=== PATIENT | male | born 1955 | race American Indian/Alaskan Native ===

== ENCOUNTER 2019-03-04 00:09 | Emergency (ER) | payer MEDICARE ==
[2019-03-04 02:11] LABS: Basophils # (Auto) 0.1 K/mm3 (0.0-0.1); Basophils % (Auto) 1.1 % (0.0-1.8); Eosinophils # (Auto) 0.2 K/mm3 (0.0-0.4); Eosinophils % (Auto) 1.4 % (0.0-4.3); Hematocrit 44.7 % (35.5-45.6); Hemoglobin 14.6 gm/dl (11.8-15.2); Lymphocytes # (Auto) 1.6 K/mm3 (1.2-5.4); Lymphocytes % (Auto) 12.8 % (13.4-35.0); Mean Corpuscular HGB Conc 33 % (32-34); Mean Corpuscular Volume 88 fl (84-94); Monocytes # (Auto) 1.3 K/mm3 (0.0-0.8); Monocytes % (Auto) 10.2 % (0.0-7.3); Platelet Count 256 K/mm3 (140-440); Red Cell Distribution Width 17.2 % (13.2-15.2)
[2019-03-04 02:33] LABS: Calcium 10.7 mg/dL (8.4-10.2)
--- NOTE | 2019-03-04 03:39 | Emergency Department Report ---
ED General Adult HPI - General Chief complaint: Altered Mental Status Stated complaint: AMS/MH EVAL Time Seen by Provider: 03/04/19 01:17 Source: EMS Mode of arrival: Stretcher Limitations: Physical Limitation - History of Present Illness Initial comments: Patient is a 63-year-old -[place] male with a past medical history of type 2 diabetes tension in stage renal disease who is exit coming from [facility] for "altered mental status". Patient admits to sometimes his medications make him feel funny. Patient is actually alert and oriented this at this time has no complaints. He states he has no chest pain shortness of breath fevers chills nausea vomiting. - Related Data Home Medications Medication Instructions Recorded Confirmed Last Taken Aspirin EC [Halfprin EC] 81 mg PO DAILY 09/25/15 09/25/15 09/24/15 81 mg AtorvaSTATin [Lipitor] 20 mg PO QHS 09/25/15 09/25/15 09/24/15 20 mg Docusate Sodium [Colace CAP] 100 mg PO DAILY 09/25/15 09/25/15 09/24/15 100 mg Hydrocortisone [Anucort-HC SUPPOS] 25 mg CA DAILY PRN 09/25/15 09/25/15 Unknown Nitroglycerin [Nitrostat] 0.4 mg SL PRN PRN 09/25/15 09/25/15 Unknown Ondansetron HCl [Ondansetron TAB] 4 mg PO Q8HR PRN 09/25/15 09/25/15 Unknown Sennosides [Senno] 8.6 mg PO DAILY 09/25/15 09/25/15 09/24/15 8.6mg oxyCODONE [roxiCODONE] 5 mg PO Q4-6H PRN 09/25/15 09/25/15 Unknown Allergies Allergy/AdvReac Type Severity Reaction Status Date / Time No Known Allergies Allergy Verified 09/25/15 09:40 ED Review of Systems ROS: Stated complaint: AMS/MH EVAL Other details as noted in HPI Comment: All other systems reviewed and negative ED Past Medical Hx - Past Medical History Previous Medical History?: Yes Hx Hypertension: Yes Hx Heart Attack/AMI: Yes Hx Congestive Heart Failure: No Hx Diabetes: Yes (type 2) Hx Renal Disease: Yes (ESRD) Hx Asthma: No Hx COPD: No Hx HIV: No Additional medical history: blind - Surgical History Past Surgical History?: Yes Additional Surgical History: vascath right chest,graft left forearm, back - Social History Smoking Status: Former Smoker Substance Use Type: None - Medications Home Medications: Home Medications Medication Instructions Recorded Confirmed Last Taken Type Aspirin EC [Halfprin EC] 81 mg PO DAILY 09/25/15 09/25/15 09/24/15 History 81 mg AtorvaSTATin [Lipitor] 20 mg PO QHS 09/25/15 09/25/15 09/24/15 History 20 mg Docusate Sodium [Colace CAP] 100 mg PO DAILY 09/25/15 09/25/15 09/24/15 History 100 mg Hydrocortisone [Anucort-HC SUPPOS] 25 mg CA DAILY PRN 09/25/15 09/25/15 Unknown History Nitroglycerin [Nitrostat] 0.4 mg SL PRN PRN 09/25/15 09/25/15 Unknown History Ondansetron HCl [Ondansetron TAB] 4 mg PO Q8HR PRN 09/25/15 09/25/15 Unknown History Sennosides [Senno] 8.6 mg PO DAILY 09/25/15 09/25/15 09/24/15 History 8.6mg oxyCODONE [roxiCODONE] 5 mg PO Q4-6H PRN 09/25/15 09/25/15 Unknown History ED Physical Exam - General Limitations: Physical Limitation General appearance: alert, in no apparent distress - Head Head exam: Present: atraumatic, normocephalic - Eye Eye exam: Present: normal appearance, PERRL, EOMI - ENT ENT exam: Present: mucous membranes moist - Neck Neck exam: Present: normal inspection - Respiratory Respiratory exam: Present: normal lung sounds bilaterally. Absent: respiratory distress, wheezes, rales, rhonchi - Cardiovascular Cardiovascular Exam: Present: regular rate, normal rhythm, normal heart sounds. Absent: systolic murmur, diastolic murmur, rubs, gallop - GI/Abdominal GI/Abdominal exam: Present: soft, normal bowel sounds. Absent: distended, tenderness, guarding, rebound - Rectal Rectal exam: Present: deferred - Extremities Exam Extremities exam: Present: normal inspection - Back Exam Back exam: Present: normal inspection - Neurological Exam Neurological exam: Present: alert, oriented X3 - Psychiatric Psychiatric exam: Present: normal affect, normal mood - Skin Skin exam: Present: warm, dry, intact, normal color. Absent: rash ED Course Vital Signs 03/04/19 00:35 Temperature 98.7 F Pulse Rate 91 H Respiratory 16 Rate Blood Pressure 133/82 O2 Sat by Pulse 94 Oximetry ED Medical Decision Making - Lab Data Result diagrams: 03/04/19 01:47 03/04/19 01:47 Labs 03/04/19 03/04/19 01:47 01:47 WBC 12.7 H RBC 5.10 H Hgb 14.6 Hct 44.7 MCV 88 MCH 29 MCHC 33 RDW 17.2 H Plt Count 256 Lymph % (Auto) 12.8 L Cataño % (Auto) 10.2 H Eos % (Auto) 1.4 Baso % (Auto) 1.1 Lymph # 1.6 Cataño # 1.3 H Eos # 0.2 Baso # 0.1 Seg Neutrophils % 74.5 H Seg Neutrophils # 9.5 H Sodium 141 Potassium 4.1 Chloride 93.9 L Carbon Dioxide 25 Anion Gap 26 BUN 43 H Creatinine 7.7 H Estimated GFR 9 BUN/Creatinine Ratio 6 Glucose 111 H Calcium 10.7 H - Medical Decision Making Patient's laboratory studies are within normal limits was patient. 2016 patient is BUN/creatinine was 80 and 9.1 respectively. Today's 43 and 7.7. Has normal potassium. Patient she is alert and oriented 3. Patient has no altered mental status and is medically cleared to go back to his snf. Critical care attestation.: If time is entered above; I have spent that time in minutes in the direct care of this critically ill patient, excluding procedure time. ED Disposition Clinical Impression: Chronic kidney disease, Episode of abnormal behavior Disposition: DC-01 TO HOME OR SELFCARE Is pt being admited?: No Does the pt Need Aspirin: No Condition: Stable Additional Instructions: Patient's laboratory studies are within normal limits he's been medically cleared. Time of Disposition: 03:45
[2019-03-04 04:30] VITALS: BP 141/91
== END 2019-03-04 06:58 | disposition home or self-care (01) ==
LOC: ED 00:09
DX: E13.22 Other specified diabetes mellitus with diabetic chronic kidney disease (principal); I12.0 Hypertensive chronic kidney disease with stage 5 chronic kidney disease or end stage renal disease; N18.6 End stage renal disease; I25.2 Old myocardial infarction; Z87.891 Personal history of nicotine dependence
CPT/HCPCS: 36415; 80048; 85025

== ENCOUNTER 2019-08-28 19:38 | Emergency (ER) | payer MEDICARE ==
--- NOTE | 2019-08-28 20:34 | Emergency Department Report ---
ED General Adult HPI - General Chief complaint: Altered Mental Status Stated complaint: ALTERED PUI?: No Time Seen by Provider: 08/28/19 20:22 Source: patient, EMS (Verbal report received from emergency medical services. EMS documentation not available at time of chart dictation ), RN notes reviewed, old records reviewed Mode of arrival: Stretcher Limitations: Altered Mental Status, Physical Limitation - History of Present Illness Initial comments: The patient is a 64-year-old gentleman. He is not known to myself previously. He is a functional bilateral lower extremity paraplegic patient, blind in both eyes, cataract surgery in his left eye, possibly on hemodialysis, with a left upper extremity fistula, has a known history of pancreatic mass and uremia. The patient is brought to the hospital by emergency medical services for weakness and altered mental status. As per verbal report from EMS, patient found at his [facility], at approximately 6:00 PM, with confusion and a reported left-sided facial droop. In the emergency room, this is resolved. The patient is awake, follows commands. He states his belly hurts when "you mash on it." He denies headache, neck pain, chest pain. The patient is somewhat of a poor historian. The patient follows commands. He is not accompanied by friends or family for additional information or collateral information at this time. He does not know who his primary care doctor or his link wire fabric machine tender is. EMS verbally indicates normal vital signs in the field, as well as normal Accu- Chek. At the moment, the patient has not been sent with his medication list. -: Sudden Consistency: now resolved Improves with: other (Patient cannot describe improving factors, exacerbating factors, or qualitative nature of his symptoms.) - Related Data Home Medications Medication Instructions Recorded Confirmed Last Taken Aspirin EC [Halfprin EC] 81 mg PO DAILY 09/25/15 09/25/15 09/24/15 81 mg AtorvaSTATin [Lipitor] 20 mg PO QHS 09/25/15 09/25/15 09/24/15 20 mg Docusate Sodium [Colace CAP] 100 mg PO DAILY 09/25/15 09/25/15 09/24/15 100 mg Hydrocortisone [Anucort-HC SUPPOS] 25 mg CA DAILY PRN 09/25/15 09/25/15 Unknown Nitroglycerin [Nitrostat] 0.4 mg SL PRN PRN 09/25/15 09/25/15 Unknown Sennosides [Senno] 8.6 mg PO DAILY 09/25/15 09/25/15 09/24/15 8.6mg ondansetron HCL [Ondansetron TAB] 4 mg PO Q8HR PRN 09/25/15 09/25/15 Unknown oxyCODONE [roxiCODONE] 5 mg PO Q4-6H PRN 09/25/15 09/25/15 Unknown Allergies Allergy/AdvReac Type Severity Reaction Status Date / Time No Known Allergies Allergy Verified 09/25/15 09:40 ED Review of Systems ROS: Stated complaint: ALTERED Other details as noted in HPI Comment: Unobtainable due to pts medical conditions Gastrointestinal: abdominal pain Neurological: confusion ED Past Medical Hx - Past Medical History Hx Hypertension: Yes Hx Heart Attack/AMI: Yes Hx Congestive Heart Failure: No Hx Diabetes: Yes (type 2) Hx Renal Disease: Yes (ESRD) Hx Asthma: No Hx COPD: No Hx HIV: No Additional medical history: blind - Surgical History Additional Surgical History: vascath right chest,graft left forearm, back - Social History Smoking Status: Former Smoker Substance Use Type: None - Medications Home Medications: Home Medications Medication Instructions Recorded Confirmed Last Taken Type Aspirin EC [Halfprin EC] 81 mg PO DAILY 09/25/15 09/25/15 09/24/15 History 81 mg AtorvaSTATin [Lipitor] 20 mg PO QHS 09/25/15 09/25/15 09/24/15 History 20 mg Docusate Sodium [Colace CAP] 100 mg PO DAILY 09/25/15 09/25/15 09/24/15 History 100 mg Hydrocortisone [Anucort-HC SUPPOS] 25 mg CA DAILY PRN 09/25/15 09/25/15 Unknown History Nitroglycerin [Nitrostat] 0.4 mg SL PRN PRN 09/25/15 09/25/15 Unknown History Sennosides [Senno] 8.6 mg PO DAILY 09/25/15 09/25/15 09/24/15 History 8.6mg ondansetron HCL [Ondansetron TAB] 4 mg PO Q8HR PRN 09/25/15 09/25/15 Unknown History oxyCODONE [roxiCODONE] 5 mg PO Q4-6H PRN 09/25/15 09/25/15 Unknown History ED Physical Exam - General Limitations: Altered Mental Status, Physical Limitation General appearance: in no apparent distress - Head Head exam: Present: atraumatic, normocephalic - Eye Eye exam: Present: normal appearance, other (Left eye is status post cataract surgery. The cornea is opacified. Crusting noted to the left eye. Right pupil is minimally reactive to light, both pupils are 3 to 4 mm.) - ENT ENT exam: Present: normal exam, mucous membranes moist, normal external ear exam, other (Patient is able to speak in complete sentences) - Neck Neck exam: Present: normal inspection, full ROM - Respiratory Respiratory exam: Present: decreased breath sounds. Absent: respiratory distress - Cardiovascular Cardiovascular Exam: Present: normal rhythm, bradycardia, normal heart sounds. Absent: tachycardia, irregular rhythm, systolic murmur, diastolic murmur, rubs, gallop - GI/Abdominal GI/Abdominal exam: Present: soft, other (There is a colostomy noted in the left lower quadrant). Absent: distended, tenderness, guarding, rebound, rigid, pulsatile mass - Rectal Rectal exam: Present: other (Skin maceration noted. Stage I wound. Chaperoned by nurse Connie Ang) - exam: Present: normal inspection (Chaperoned by nurse Connie Ang) - Extremities Exam Extremities exam: Present: other (There is swelling in the left upper extremity. 2+ pulses noted in the bilateral radial and femoral distributions. There is a left upper extremity fistula, without redness, pus or streaking. There is an appropriate thrill.). Absent: normal inspection (Chronic wound noted to the right distal lower extremity/lateral malleolus. No redness, pus or streaking. Chronic wound noted to the left lateral foot. No redness, pus or streaking.), tenderness (There is no long bony tenderness) - Back Exam Back exam: Present: normal inspection. Absent: tenderness - Neurological Exam Neurological exam: Present: other (The patient is awake. He is paraplegic in his bilateral lower extremities. He has 4 out of 5 strength in his bilateral upper extremities. Sensation is intact to light touch in the bilateral upper extremities. Hearing is grossly intact. Patient is phonating normally. The tongue is midline. Patient has difficulty completing a detailed neurologic examination secondary to debility and mental status.) - Psychiatric Psychiatric exam: Present: flat affect - Skin Skin exam: Present: warm ED Course Vital Signs 08/28/19 08/28/19 08/28/19 20:30 21:00 21:12 Temperature 96.0 F L Pulse Rate 57 L 56 L 54 L Respiratory 18 12 Rate Blood Pressure 122/68 Blood Pressure 122/68 [Right] O2 Sat by Pulse 99 94 92 Oximetry 08/28/19 08/28/19 08/28/19 22:00 23:00 23:04 Temperature Pulse Rate 51 L 51 L 49 L Respiratory 15 10 L Rate Blood Pressure 122/68 124/74 124/71 Blood Pressure [Right] O2 Sat by Pulse 99 100 100 Oximetry 08/29/19 08/29/19 00:00 01:00 Temperature Pulse Rate 52 L 49 L Respiratory Rate Blood Pressure 124/71 110/65 Blood Pressure [Right] O2 Sat by Pulse 100 100 Oximetry - Reevaluation(s) Reevaluation #1: 08/28/19 21:20 Differential diagnosis, including but not limited to: Transient ischemic attack, pneumonia, urinary tract infection, intracranial lesion, intra-abdominal infection, toxic encephalopathy, metabolic encephalopathy, electrolyte derangement, thyroid derangement Assessment and plan: 64-year-old gentleman who is bedbound and quadriplegic, moving bilateral upper extremities, no obvious facial droop on my exam, with no acute complaints at this time with the exception of abdominal pain with palpation, with a soft benign abdomen. Rectal temperature is 96 degrees. Patient will be started on passive rewarming. CT scan of the brain, CT scan of the abdomen pelvis, appropriate laboratory studies ordered, nursing team has been instructed to contact his [facility] and reconcile his medications. We will reassess after his data points have resulted Reevaluation #2: 08/28/19 21:52 called up [facility] residence, carp[facility] they were not able to tell me the name of the patients link wire fabric machine tender or provide additional collateral information regarding what transpired prior to the patient arriving to this er Reevaluation #3: 08/28/19 21:55 pmd : Dr Jack Quinn Reevaluation #4: 08/28/19 23:17 renal: Dr Gwendolyn Mulligan ct head and abd/pelvis negative for acute findings patient is anuric On reassessment, the patient is sleeping comfortably in his stretcher, in no acute distress, with no obvious facial droop. 08/28/19 23:21 Medication list reviewed and appreciated. Medications include Keppra, sevelamer carbonate vitamin d 3, sertraline, melatonin, baclofen, mvi, ketotifen fumarate 08/29/19 00:09 patient continues to rest comfortably, no facial droop, no acute distress at this time. Collateral information obtained from nursing team, as per verbal report from [facility] staff, patient has had events like this in the past. Apparently, it is happen with such frequency, that he is even had a psychiatric evaluation. The details of this examination and evaluation are not known at this time. 08/29/19 02:43 Final reevaluation. Patient has been observed in this department for 7 hours. We have not noticed or observed any facial droop. He will occasionally move his bilateral upper extremities. His vital signs appear to be unremarkable. ED Medical Decision Making - Lab Data Result diagrams: 08/28/19 20:52 08/28/19 20:52 Vital Signs 08/28/19 21:12 Temperature 96.0 F L Pulse Rate 54 L Respiratory 12 Rate Blood Pressure 122/68 [Right] O2 Sat by Pulse 92 Oximetry Lab Results 08/28/19 Range/Units 20:52 WBC 6.8 (4.5-11.0) K/mm3 RBC 4.54 (3.65-5.03) M/mm3 Hgb 12.5 (11.8-15.2) gm/dl Hct 38.7 (35.5-45.6) % MCV 85 (84-94) fl MCH 28 (28-32) pg MCHC 32 (32-34) % RDW 18.6 H (13.2-15.2) % Plt Count 184 (140-440) K/mm3 Lab Results 08/28/19 08/28/19 08/28/19 Range/Units 20:52 20:52 20:52 WBC 6.8 (4.5-11.0) K/mm3 RBC 4.54 (3.65-5.03) M/mm3 Hgb 12.5 (11.8-15.2) gm/dl Hct 38.7 (35.5-45.6) % MCV 85 (84-94) fl MCH 28 (28-32) pg MCHC 32 (32-34) % RDW 18.6 H (13.2-15.2) % Plt Count 184 (140-440) K/mm3 PT (12.2-14.9) Sec. INR (0.87-1.13) Sodium 142 (137-145) mmol/L Potassium 4.5 (3.6-5.0) mmol/L Chloride 93.8 L (98-107) mmol/L Carbon Dioxide 33 H (22-30) mmol/L Anion Gap 20 mmol/L BUN 52 H (9-20) mg/dL Creatinine 8.3 H (0.8-1.5) mg/dL Estimated GFR 8 ml/min BUN/Creatinine Ratio 6 % Glucose 115 H (75-100) mg/dL Calcium 10.8 H (8.4-10.2) mg/dL Magnesium 3.00 H (1.7-2.3) mg/dL Total Bilirubin 0.30 (0.1-1.2) mg/dL AST 16 (5-40) units/L ALT 18 (7-56) units/L Alkaline Phosphatase 87 (35-129) units/L Total Creatine Kinase 173 H (55-170) units/L Total Protein 7.8 (6.3-8.2) g/dL Albumin 3.4 L (3.9-5) g/dL Albumin/Globulin Ratio 0.8 % Lipase 39 (13-60) units/L TSH 1.430 (0.270-4.200) mlU/mL Salicylates (2.8-20.0) mg/dL Acetaminophen (10.0-30.0) ug/mL Plasma/Serum Alcohol (0-0.07) % 08/28/19 08/28/19 08/28/19 Range/Units 20:52 20:52 20:52 WBC (4.5-11.0) K/mm3 RBC (3.65-5.03) M/mm3 Hgb (11.8-15.2) gm/dl Hct (35.5-45.6) % MCV (84-94) fl MCH (28-32) pg MCHC (32-34) % RDW (13.2-15.2) % Plt Count (140-440) K/mm3 PT (12.2-14.9) Sec. INR (0.87-1.13) Sodium (137-145) mmol/L Potassium (3.6-5.0) mmol/L Chloride (98-107) mmol/L Carbon Dioxide (22-30) mmol/L Anion Gap mmol/L BUN (9-20) mg/dL Creatinine (0.8-1.5) mg/dL Estimated GFR ml/min BUN/Creatinine Ratio % Glucose (75-100) mg/dL Calcium (8.4-10.2) mg/dL Magnesium (1.7-2.3) mg/dL Total Bilirubin (0.1-1.2) mg/dL AST (5-40) units/L ALT (7-56) units/L Alkaline Phosphatase (35-129) units/L Total Creatine Kinase (55-170) units/L Total Protein (6.3-8.2) g/dL Albumin (3.9-5) g/dL Albumin/Globulin Ratio % Lipase (13-60) units/L TSH (0.270-4.200) mlU/mL Salicylates < 0.3 L (2.8-20.0) mg/dL Acetaminophen < 5.0 L (10.0-30.0) ug/mL Plasma/Serum Alcohol < 0.01 (0-0.07) % /02/04 Range/Units 20:52 WBC (4.5-11.0) K/mm3 RBC (3.65-5.03) M/mm3 Hgb (11.8-15.2) gm/dl Hct (35.5-45.6) % MCV (84-94) fl MCH (28-32) pg MCHC (32-34) % RDW (13.2-15.2) % Plt Count (140-440) K/mm3 PT 13.9 (12.2-14.9) Sec. INR 1.09 (0.87-1.13) Sodium (137-145) mmol/L Potassium (3.6-5.0) mmol/L Chloride (98-107) mmol/L Carbon Dioxide (22-30) mmol/L Anion Gap mmol/L BUN (9-20) mg/dL Creatinine (0.8-1.5) mg/dL Estimated GFR ml/min BUN/Creatinine Ratio % Glucose (75-100) mg/dL Calcium (8.4-10.2) mg/dL Magnesium (1.7-2.3) mg/dL Total Bilirubin (0.1-1.2) mg/dL AST (5-40) units/L ALT (7-56) units/L Alkaline Phosphatase (35-129) units/L Total Creatine Kinase (55-170) units/L Total Protein (6.3-8.2) g/dL Albumin (3.9-5) g/dL Albumin/Globulin Ratio % Lipase (13-60) units/L TSH (0.270-4.200) mlU/mL Salicylates (2.8-20.0) mg/dL Acetaminophen (10.0-30.0) ug/mL Plasma/Serum Alcohol (0-0.07) % - EKG Data 08/28/19 21:14 The EKG shows a sinus rhythm, bradycardia, 56 bpm, first-degree AV block, right bundle branch block, left axis deviation, left anterior fascicular block, low voltage, abnormal EKG, QTC prolonged, not a STEMI. When compared to prior EKG from June 2015, first-degree AV block, left axis deviation, right bundle branch block have been present since then. - Radiology Data Radiology results: report reviewed, image reviewed Print Report Referring Physician: ANKUSH MAYO Patient Name: QUIN BUNCH Date of : 1955 Sex: Male Report Date: 2019-08-28 Report Status: [place] [address] XRay Report Signed Patient: QUIN BUNCH MR#: [id number] 84 : 1955 Acct:[id number] Age/Sex: 64 / M ADM Date: 08/28/19 Loc: ED Attending Dr: Ordering Physician: ANKUSH MAYO MD Date of Service: 08/28/19 Procedure(s): XR chest 1V ap Accession Number(s): [id number] cc: ANKUSH MAYO MD Fluoro Time In Minutes: CHEST 1 VIEW 08/28/2019 8:30 PM INDICATION / CLINICAL INFORMATION: Altered mental status, weakness, history of stroke. COMPARISON: None available. FINDINGS: SUPPORT DEVICES: None. HEART / MEDIASTINUM: No significant abnormality. LUNGS / PLEURA: No significant pulmonary or pleural abnormality. No pneumothorax. ADDITIONAL FINDINGS: No significant additional findings. IMPRESSION: 1. No acute abnormality of the chest. Signer Name: Sujit Sutherland MD Signed: 08/28/2019 8:50 PM Workstation Name: [id number] Transcribed By: GERSON Dictated By: Sujit Sutherland MD Electronically Authenticated By: Sujit Sutherland MD Signed Date/Time: 08/28/192049 DD/ 48 TD/TT: Critical care attestation.: If time is entered above; I have spent that time in minutes in the direct care of this critically ill patient, excluding procedure time. ED Disposition Clinical Impression: ESRD (end stage renal disease) on dialysis, General medical exam Disposition: DC/TX-70 ANOTHER TYPE HLTHCARE Is pt being admited?: No Does the pt Need Aspirin: No Condition: Stable Additional Instructions: Continue outpatient medications with the exception of baclofen; recommend that p atient discontinue baclofen. Follow-up with your outpatient primary care doctor or link wire fabric machine tender within the next 2 to 3 days. Please have your primary care doctor or link wire fabric machine tender follow-up on the swelling for the patient's left upper extremity. Recommend that this is followed up within the recommended timeframe. Please return to the emergency room right away with new pain, worsening pain, migration of pain, projectile vomiting, change in mental status, confusion, inability to tolerate liquid feeds, new, worsened or different symptoms not present on the initial emergency room evaluation. Referrals: SARA QUINN MD [Staff Physician] - 3-5 Days Time of Disposition: 02:45 (Discharge back to nursing)
--- NOTE | 2019-08-28 20:54 | XRay Report ---
CHEST 1 VIEW 08/28/2019 8:30 PM INDICATION / CLINICAL INFORMATION: Altered mental status, weakness, history of stroke. COMPARISON: None available. FINDINGS: SUPPORT DEVICES: None. HEART / MEDIASTINUM: No significant abnormality. LUNGS / PLEURA: No significant pulmonary or pleural abnormality. No pneumothorax. ADDITIONAL FINDINGS: No significant additional findings. IMPRESSION: 1. No acute abnormality of the chest. Signer Name: Sujit Sutherland MD Signed: 08/28/2019 8:50 PM Workstation Name: [id number]
[2019-08-28 21:11] LABS: Hematocrit 38.7 % (35.5-45.6); Hemoglobin 12.5 gm/dl (11.8-15.2); Mean Corpuscular HGB Conc 32 % (32-34); Mean Corpuscular Volume 85 fl (84-94); Platelet Count 184 K/mm3 (140-440); Red Blood Count 4.54 M/mm3 (3.65-5.03); Red Cell Distribution Width 18.6 % (13.2-15.2)
[2019-08-28 21:18] LABS: INR 1.09 (0.87-1.13)
[2019-08-28 21:37] LABS: Albumin 3.4 g/dL (3.9-5); Calcium 10.8 mg/dL (8.4-10.2)
--- NOTE | 2019-08-28 23:00 | Cat Scan Report ---
CT abdomen pelvis wo con INDICATION / CLINICAL INFORMATION: ams weakness colostomy, abd pain. TECHNIQUE: Axial CT imaging of abdomen and pelvis was obtained without contrast. Coronal and sagittal reformatte d imaging obtained and reviewed. All CT scans at this location are performed using CT dose reduction for ALARA by means of automated exposure control. COMPARISON: Prior CT, 07/18/2015 FINDINGS: CT abdomen without contrast demonstrates normal appearance of the liver, spleen, pancreas, adrenal glands, and gallbladder.There are multiple calculi within both kidneys but no hydronephrosis present. Small cyst exophytic cyst is seen arising from the right kidney. Supraumbilical midline abdominal wall hernia is present containing only fat. CT pelvis without contrast demonstrates diffusely thickened and irregular urinary bladder wall. Prost ate gland is mildly enlarged. No pelvic mass, free fluid, or focal inflammatory changes noted. A left lower quadrant colostomy is present. GI tract is otherwise unremarkable. No evidence of mechanical b owel obstruction or inflammatory change related to the GI tract. Visualized lung bases show chronic findings but no acute disease. Degenerative disc disease is present at L5-S1. No acute osseous abnormality. IMPRESSION: 1. No acute finding within the abdomen or pelvis. 2. Bilateral nephrolithiasis without obstruction. 3. Supraumbilical midline abdominal wall hernia containing only fat. 4. Abnormal appearance of the urinary bladder. There is diffusely thickened and irregular appearing u rinary bladder wall. This may be due to mild chronic bladder outlet obstruction. Signer Name: Wen Lewis MD Signed: 08/28/2019 10:56 PM Workstation Name: [id number]
--- NOTE | 2019-08-28 23:05 | Cat Scan Report ---
CT HEAD WITHOUT CONTRAST INDICATION / CLINICAL INFORMATION: ams weakness. TECHNIQUE: All CT scans at this location are performed using CT dose reduction for ALARA by means of automated e xposure control. COMPARISON: None available. FINDINGS: HEMORRHAGE: None. EXTRA-AXIAL SPACES: Normal in size and morphology for the patient's age. VENTRICULAR SYSTEM: Normal in size and morphology for the patient's age. CEREBRAL PARENCHYMA: Extensive periventricular and deep white matter hypoattenuation characteristic f or microangiopathy. No significant abnormality. No acute territorial infarct. MIDLINE SHIFT OR HERNIATION: None. CEREBELLUM / BRAINSTEM: No significant abnormality. ORBITS: Normal as visualized. SOFT TISSUES of HEAD: No significant abnormality. CALVARIUM: No significant abnormality. PARANASAL SINUSES / MASTOID AIR CELLS: Normal as visualized. ADDITIONAL FINDINGS: None. IMPRESSION: 1. No acute intracranial abnormality. 2. Extensive microangiopathy Signer Name: Son Call MD Signed: 08/28/2019 11:00 PM Workstation Name: [id number]
[2019-08-29 01:05] VITALS: BP 110/65
== END 2019-08-29 04:00 | disposition other institution (70) ==
LOC: ED 19:38
DX: E11.22 Type 2 diabetes mellitus with diabetic chronic kidney disease (principal); I12.0 Hypertensive chronic kidney disease with stage 5 chronic kidney disease or end stage renal disease; N18.6 End stage renal disease; Z99.2 Dependence on renal dialysis; Z87.891 Personal history of nicotine dependence; Z79.899 Other long term (current) drug therapy
CPT/HCPCS: 36415; 70450; 71045; 74176; 80053; 80320; 82550; 83690; 83735; 84443; 85027; 85610; 93005; G0480

== ENCOUNTER 2021-07-23 21:07 | Emergency (ER) | payer MEDICARE ==
--- NOTE | 2021-07-23 23:24 | Emergency Department Report ---
ED General Adult HPI - General Chief complaint: Tube Replacement Stated complaint: DRAINAGE BACK UP FROM RECTAL BAG Time Seen by Provider: 07/23/21 23:09 Source: EMS Mode of arrival: Stretcher Limitations: No Limitations - History of Present Illness Initial comments: 66 yo legally blind M brought in from the [place] [facility] with disfunction wound drainage that was placed by surgeon at the clinic. Pt says he has been told to follow up at the clinic but he has not got around it. No fever or chills reported. And patient denies any pain coming from the area or warmth. No redness reported or surrounding serosanguineous liquid drainage. No other modifying or associated factors reported. Severity scale (0 -10): 0 - Related Data Home Medications Medication Instructions Recorded Confirmed Last Taken Aspirin EC [Halfprin EC] 81 mg PO DAILY 09/25/15 09/25/15 09/24/15 81 mg AtorvaSTATin [Lipitor] 20 mg PO QHS 09/25/15 09/25/15 09/24/15 20 mg Docusate Sodium [Colace CAP] 100 mg PO DAILY 09/25/15 09/25/15 09/24/15 100 mg Hydrocortisone [Anucort-HC SUPPOS] 25 mg IN DAILY PRN 09/25/15 09/25/15 Unknown Nitroglycerin [Nitrostat] 0.4 mg SL PRN PRN 09/25/15 09/25/15 Unknown Sennosides [Senno] 8.6 mg PO DAILY 09/25/15 09/25/15 09/24/15 8.6mg ondansetron HCL [Ondansetron TAB] 4 mg PO Q8HR PRN 09/25/15 09/25/15 Unknown oxyCODONE [roxiCODONE] 5 mg PO Q4-6H PRN 09/25/15 09/25/15 Unknown Allergies Allergy/AdvReac Type Severity Reaction Status Date / Time No Known Allergies Allergy Verified 09/25/15 09:40 ED Review of Systems ROS: Stated complaint: DRAINAGE BACK UP FROM RECTAL BAG Other details as noted in HPI Comment: All other systems reviewed and negative Musculoskeletal: other (Back decubitus wound drainage dysfunction) ED Past Medical Hx - Past Medical History Hx Hypertension: Yes Hx Heart Attack/AMI: Yes Hx Congestive Heart Failure: No Hx Diabetes: Yes (type 2) Hx Renal Disease: Yes (ESRD) Hx Asthma: No Hx COPD: No Hx HIV: No Additional medical history: blind - Surgical History Additional Surgical History: vascath right chest,graft left forearm, back - Social History Smoking Status: Former Smoker Substance Use Type: None - Medications Home Medications: Home Medications Medication Instructions Recorded Confirmed Last Taken Type Aspirin EC [Halfprin EC] 81 mg PO DAILY 09/25/15 09/25/15 09/24/15 History 81 mg AtorvaSTATin [Lipitor] 20 mg PO QHS 09/25/15 09/25/15 09/24/15 History 20 mg Docusate Sodium [Colace CAP] 100 mg PO DAILY 09/25/15 09/25/15 09/24/15 History 100 mg Hydrocortisone [Anucort-HC SUPPOS] 25 mg IN DAILY PRN 09/25/15 09/25/15 Unknown History Nitroglycerin [Nitrostat] 0.4 mg SL PRN PRN 09/25/15 09/25/15 Unknown History Sennosides [Senno] 8.6 mg PO DAILY 09/25/15 09/25/15 09/24/15 History 8.6mg ondansetron HCL [Ondansetron TAB] 4 mg PO Q8HR PRN 09/25/15 09/25/15 Unknown History oxyCODONE [roxiCODONE] 5 mg PO Q4-6H PRN 09/25/15 09/25/15 Unknown History ED Physical Exam - General Limitations: No Limitations General appearance: alert, in no apparent distress - Head Head exam: Present: atraumatic, normal inspection - ENT ENT exam: Present: normal exam, normal orophraynx, mucous membranes moist - Neck Neck exam: Present: normal inspection. Absent: tenderness - Respiratory Respiratory exam: Present: normal lung sounds bilaterally. Absent: respiratory distress, chest wall tenderness, accessory muscle use - Cardiovascular Cardiovascular Exam: Present: regular rate, normal rhythm, normal heart sounds - GI/Abdominal GI/Abdominal exam: Present: soft. Absent: distended, tenderness - Extremities Exam Extremities exam: Present: normal inspection. Absent: tenderness - Back Exam Back exam: Present: other (Drainage tube noted with bandage decubitus ulcer). Absent: tenderness, rash noted ED Course Vital Signs 07/23/21 22:16 Temperature 97.6 F Pulse Rate 68 Respiratory 16 Rate Blood Pressure 105/67 [Left] O2 Sat by Pulse 95 Oximetry - Reevaluation(s) Reevaluation #1: 07/23/21 23:24 Back decubitus wound drainage dysfunction--Drainage tube noted with bandage decubitus ulcer--patient reassured and encouraged to follow-up with his surgeon since there is no drainage around the dressing, or any issue with the drainage tube. 07/23/21 23:24 Critical care attestation.: If time is entered above; I have spent that time in minutes in the direct care of this critically ill patient, excluding procedure time. ED Disposition Clinical Impression: Wound drainage Disposition: 01 HOME / SELF CARE / HOMELESS Is pt being admited?: No Does the pt Need Aspirin: No Condition: Stable Additional Instructions: Is important that you call and follow-up with your surgeon in the clinic in the next 24 to 48 hours for progress Referrals: JOSE ADAN MD [Referring] - 3-5 Days
[2021-07-24 01:49] VITALS: BP 131/68
== END 2021-07-24 02:10 | disposition home or self-care (01) ==
LOC: ED 21:07
DX: T81.49XA Infection following a procedure, other surgical site, initial encounter (principal); I10 Essential (primary) hypertension; E11.9 Type 2 diabetes mellitus without complications; Z87.891 Personal history of nicotine dependence
CPT/HCPCS: 99283